=== PATIENT | male | born 1975 | race Two or more races ===

== ENCOUNTER 2021-02-27 23:06 | Inpatient (IN) | payer OTHER ==
[~2021-02-27] VITALS: Ht 22.9 cm; Wt 5.0 kg
[2021-02-27] MEDS ORDERED: LOTREL 5-20 MG1 CAP (23:39)
== END 2021-03-06 15:14 | disposition home or self-care (01) | DRG 897 ==
LOC: ER 23:06 → ICU-2 02-28 08:23 → SEC-K 03-01 11:19 → MEDI 03-02 10:40
PROVIDERS: ADMIT Internal Medicine; ATTEND Internal Medicine
PROC: 3E0F7SF Introduction of Other Gas into Respiratory Tract, Via Natural or Artificial Opening (ICD-10-PCS; principal; 2021-02-28)
PROC: 4A12X4Z Monitoring of Cardiac Electrical Activity, External Approach (ICD-10-PCS; 2021-02-28)
PROC: BW28ZZZ Computerized Tomography (CT Scan) of Head (ICD-10-PCS; 2021-02-28)
PROC: 4A033R1 Measurement of Arterial Saturation, Peripheral, Percutaneous Approach (ICD-10-PCS; 2021-02-28)
PROC: BW40ZZZ Ultrasonography of Abdomen (ICD-10-PCS; 2021-03-01)
PROC: B24BZZZ Ultrasonography of Heart with Aorta (ICD-10-PCS; 2021-03-01)
DX: F10.231 Alcohol dependence with withdrawal delirium (principal); M62.82 Rhabdomyolysis; E87.6 Hypokalemia; Z20.822 Contact with and (suspected) exposure to COVID-19